=== PATIENT | male | born 1985 | race American Indian/Alaskan Native ===

== ENCOUNTER 2017-12-09 08:10 | Emergency (ER) | payer SELFPAY ==
[2017-12-09 08:25] VITALS: BP 137/83
--- NOTE | 2017-12-09 08:44 | Emergency Department Report ---
ED ENT HPI - General Chief complaint: Sore Throat Stated complaint: SORE THROAT Time Seen by Provider: 12/09/17 08:43 Source: patient Mode of arrival: Ambulatory Limitations: No Limitations - History of Present Illness Initial comments: 32-year-old male past medical history none presents with complaint of 2 days of sore throat. Awake alert and oriented 3. Some subjective chills as per patient. Denies cough. Denies any recent dental work. No trismus no drooling no muffled voice no stridor no wheezing noted on exam. Patient speaking in full sentences. Denies chest pain shortness of breath nausea or vomiting. Is able to swallow liquids but some pain with swallowing solids MD complaint: sore throat Onset/Timin -: days(s) Location: throat Severity: moderate Severity scale (0 -10): 5 Quality: aching Consistency: constant Associated Symptoms: sore throat - Related Data Previous Rx's Medication Instructions Recorded Last Taken Type Dextromethorphan/Benzocaine 1 each PO Q4H PRN #1 box 12/09/17 Unknown Rx [Cepacol Sorethroat-Cough Omid] Ibuprofen [Motrin] 800 mg PO Q8HR PRN #20 tablet 12/09/17 Unknown Rx Penicillin Vk [Veetids TAB] 500 mg PO QID #40 tablet 12/09/17 Unknown Rx Allergies Allergy/AdvReac Type Severity Reaction Status Date / Time No Known Allergies Allergy Unverified 12/09/17 08:25 ED Dental HPI - General Chief complaint: Sore Throat Stated complaint: SORE THROAT Time Seen by Provider: 12/09/17 08:43 Source: patient Mode of arrival: Ambulatory Limitations: No Limitations - Related Data Previous Rx's Medication Instructions Recorded Last Taken Type Dextromethorphan/Benzocaine 1 each PO Q4H PRN #1 box 12/09/17 Unknown Rx [Cepacol Sorethroat-Cough Omid] Ibuprofen [Motrin] 800 mg PO Q8HR PRN #20 tablet 12/09/17 Unknown Rx Penicillin Vk [Veetids TAB] 500 mg PO QID #40 tablet 12/09/17 Unknown Rx Allergies Allergy/AdvReac Type Severity Reaction Status Date / Time No Known Allergies Allergy Unverified 12/09/17 08:25 ED Review of Systems ROS: Stated complaint: SORE THROAT Other details as noted in HPI Constitutional: denies: chills, fever Eyes: denies: eye pain, eye discharge, vision change ENT: throat pain. denies: ear pain Respiratory: denies: cough, shortness of breath, wheezing Cardiovascular: denies: chest pain, palpitations Endocrine: no symptoms reported Gastrointestinal: denies: abdominal pain, nausea, diarrhea Genitourinary: denies: urgency, dysuria Musculoskeletal: denies: back pain, joint swelling, arthralgia Skin: denies: rash, lesions Neurological: denies: headache, weakness, paresthesias Psychiatric: denies: anxiety, depression Hematological/Lymphatic: denies: easy bleeding, easy bruising ED Past Medical Hx - Past Medical History Previous Medical History?: No - Social History Smoking Status: Current Every Day Smoker - Medications Home Medications: Home Medications Medication Instructions Recorded Confirmed Last Taken Type Dextromethorphan/Benzocaine 1 each PO Q4H PRN #1 box 12/09/17 Unknown Rx [Cepacol Sorethroat-Cough Omid] Ibuprofen [Motrin] 800 mg PO Q8HR PRN #20 tablet 12/09/17 Unknown Rx Penicillin Vk [Veetids TAB] 500 mg PO QID #40 tablet 12/09/17 Unknown Rx ED Physical Exam - General Limitations: No Limitations General appearance: alert, in no apparent distress - Head Head exam: Present: atraumatic, normocephalic - Eye Eye exam: Present: normal appearance - ENT ENT exam: Present: mucous membranes moist - Expanded ENT Exam Expanded Throat exam: Positive: tonsillar exudate (bilateral tonsillar exudates no visible [employer] uvula is midline, some tonsillar erythema noted on exam. Oropharynx is open and patent) - Neck Neck exam: Present: normal inspection, full ROM (neck flexion and extension intact), lymphadenopathy (tender anterior cervical adenopathy bilaterally) - Respiratory Respiratory exam: Present: normal lung sounds bilaterally. Absent: respiratory distress - Cardiovascular Cardiovascular Exam: Present: regular rate, normal rhythm. Absent: systolic murmur, diastolic murmur, rubs, gallop - GI/Abdominal GI/Abdominal exam: Present: soft, normal bowel sounds - Rectal Rectal exam: Present: deferred - Extremities Exam Extremities exam: Present: normal inspection - Back Exam Back exam: Present: normal inspection - Neurological Exam Neurological exam: Present: alert, oriented X3 - Psychiatric Psychiatric exam: Present: normal affect, normal mood - Skin Skin exam: Present: warm, dry, intact, normal color. Absent: rash ED Course Vital Signs 12/09/17 08:17 Temperature 98.7 F Pulse Rate 76 Respiratory 16 Rate Blood Pressure 137/83 O2 Sat by Pulse 99 Oximetry ED Medical Decision Making - Medical Decision Making A/P: Tonsillitis 1- initial strep swab negative 2- Motrin 800 when necessary, throat lozenges when necessary, 3- pen vk 10 days 500mg bid 4- patient is able to tolerate by mouth fluids before discharge. I advised patient to follow up with primary care or to return to the ED for any inability to tolerate by mouth fluid or food persistent nausea and vomiting severe fevers and chills or fevers persistently above 100.4F despite antipyretic use, severe lethargy. Patient stated he understood my instructions. I advised patient to remain well-hydrated. Critical care attestation.: If time is entered above; I have spent that time in minutes in the direct care of this critically ill patient, excluding procedure time. ED Disposition Clinical Impression: Tonsillitis with exudate Disposition: DC-01 TO HOME OR SELFCARE Is pt being admited?: No Does the pt Need Aspirin: No Condition: Stable Instructions: Tonsillitis (ED) Prescriptions: Dextromethorphan/Benzocaine [Cepacol Sorethroat-Cough Omid] 1 each PO Q4H PRN #1 box PRN Reason: Sore Throat Ibuprofen [Motrin] 800 mg PO Q8HR PRN #20 tablet PRN Reason: Pain Penicillin Vk [Veetids TAB] 500 mg PO QID #40 tablet Referrals: PRIMARY CARE, [Primary Care Provider] - 3-5 Days [facility] [Provider Group] - 3-5 Days Forms: Work/School Release Form(ED) Time of Disposition: 09:50
[2017-12-09] MEDS ORDERED: MOTRIN PO ONE (09:38)
[2017-12-09] MEDS ORDERED: DECADRON IM ONE (09:38)
[2017-12-09] MEDS ORDERED: ALUM-MAG HYDROX-SIMETH 200-200-20MG/5ML PO ONE (09:39)
[2017-12-09] MEDS ORDERED: LIDOCAINE VISCOUS 2% MM NR (09:45)
== END 2017-12-09 10:02 | disposition home or self-care (01) ==
LOC: ED 08:10
DX: J03.90 Acute tonsillitis, unspecified (principal); F17.200 Nicotine dependence, unspecified, uncomplicated
CPT/HCPCS: 87116; 87430; 96372; 99283; J1100